=== PATIENT | female | born 1975 | race Caucasian/White ===

== ENCOUNTER 2019-11-30 10:03 | Emergency (ER) | payer MEDICAID ==
[~2019-11-30] VITALS: Ht 165.1 cm; Wt 77.6 kg
[2019-11-30 10:19] VITALS: Ht 165.1 cm; Wt 77.6 kg
[2019-11-30 13:47] VITALS: BP 114/75
== END 2019-11-30 13:47 | disposition home or self-care (01) ==
LOC: ED 10:03
DX: R42 Dizziness and giddiness (principal); N39.0 Urinary tract infection, site not specified; Z90.49 Acquired absence of other specified parts of digestive tract; Z98.890 Other specified postprocedural states
CPT/HCPCS: J1885; J8597